=== PATIENT | male | born 1970 | race Caucasian/White ===

== ENCOUNTER 2018-12-05 01:14 | Emergency (ER) | payer OTHER ==
[~2018-12-05] VITALS: Ht 180.3 cm; Wt 72.7 kg
[2018-12-05 01:14] VITALS: BP 113/70; PULSE 68; RESP 18; Ht 180.3 cm; Wt 72.7 kg
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
== END 2018-12-05 02:25 | disposition home or self-care (01) ==
LOC: E/R 01:14
DX: Z02.89 Encounter for other administrative examinations (principal); R40.2142 Coma scale, eyes open, spontaneous, at arrival to emergency department; R40.2362 Coma scale, best motor response, obeys commands, at arrival to emergency department; R40.2252 Coma scale, best verbal response, oriented, at arrival to emergency department; I10 Essential (primary) hypertension
CPT/HCPCS: 99282